=== PATIENT | female | born 1990 | race Caucasian/White ===

== ENCOUNTER 2021-12-03 08:46 | Outpatient (CLI) | payer OTHER, SELFPAY ==
--- NOTE | ~2021-12-03 | XR_ITS ---
EXAMINATION: XR shoulder RT min 2V DATE: 12/03/2021 09:10 INDICATION: Right shoulder pain. TECHNIQUE: 4 views of right shoulder were obtained. COMPARISON: None. FINDINGS: Bone alignment is normal. No fracture. Joint spaces are well maintained. IMPRESSION: 1. Normal right shoulder. Reviewed, dictated and finalized at location B. IMPRESSION: 1. Normal right shoulder.
== END 2021-12-03 08:47 | disposition home or self-care (01) ==
PROVIDERS: PCP Physician Assistant; Visit Provider Physician Assistant
DX: M25.511 Pain in right shoulder (principal)
CPT/HCPCS: 73030

== ENCOUNTER 2021-12-08 09:13 | Outpatient (CLI) | payer OTHER, SELFPAY ==
--- NOTE | ~2021-12-08 | US_ITS ---
EXAMINATION: US pelvic complete w TV DATE: 12/08/2021 09:57 INDICATION: Abnormal uterine bleeding TECHNIQUE: Multiple transabdominal and endovaginal sonographic images of the pelvis were obtained. COMPARISON: None. FINDINGS: The retroflexed uterus measures 8.9 x 3.2 x 5.0 cm. The endometrial complex measures 5 mm in thickne ss. The right ovary measures 4.2 x 2.0 x 3.7 cm. The left ovary measures 5.0 x 3.0 x 3.5 cm. 3.4 cm c omplex mixed solid and cystic left ovarian lesion with both anechoic and hypoechoic cystic components and central more solid hypoechoic component without evident internal vascular flow on color Doppler. Vascular flow is seen in the left ovary peripheral to the cystic lesion. Vascular flow is identified in the right ovary. There is no free fluid in the pelvis. IMPRESSION: 1. Normal uterus with endometrial complex measuring 5 mm in thickness which is normal. 2. 3.4 cm complex mixed solid and cystic left ovarian lesion. Differential would include hemorrhagic cyst or neoplasm either benign or malignant. Recommend further evaluation with pre and postcontrast p elvic MRI. Reviewed, dictated and finalized at location B. IMPRESSION: 1. Normal uterus with endometrial complex measuring 5 mm in thickness which is normal. 2. 3.4 cm complex mixed solid and cystic left ovarian lesion. Differential woul d include hemorrhagic cyst or neoplasm either benign or malignant. Recommend fu rther evaluation with pre and postcontrast pelvic MRI.
== END 2021-12-08 09:14 | disposition home or self-care (01) ==
PROVIDERS: PCP Physician Assistant; Visit Provider Physician Assistant
DX: N93.9 Abnormal uterine and vaginal bleeding, unspecified (principal); N83.202 Unspecified ovarian cyst, left side
CPT/HCPCS: 76830; 76856

== ENCOUNTER 2022-04-10 12:39 | Outpatient (CLI) | payer OTHER, SELFPAY ==
--- NOTE | ~2022-04-10 | MR_ITS ---
EXAMINATION: MR pelvis wo/w con INDICATION: Unspecified ovarian cyst TECHNIQUE: Coronal SSFSE ARC, Coronal, Axial, and Sagittal T2 FRFSE small [id number], Coronal 2D F IESTA FatSat, Axial SSFSE BH ARC, Axial 3D DualEcho BH, Axial STIR, Axial DWI b=500, pre and dynamic postcontrast Axial LAVA ARC COMPARISON: Ultrasound, 12/08/2021 CONTRAST: Multihance, 11 cc FINDINGS: The previously described left ovarian mass is no longer evident. There is a 17 mm hemorrhag ic cyst of the left ovary. There is a 5.4 x 4.1 cm cyst of the right ovary with internal debris. No s uspicious adnexal mass is identified. There are no pathologically enlarged pelvic lymph nodes. No dil ated loops of bowel are identified. There is a small volume of physiologic free fluid in the pelvis. No abnormal enhancement is present after contrast administration. IMPRESSION: 1. Hemorrhagic cyst of left ovary with decrease in size since the comparison ultrasound. 2. 5.4 cm cyst of the right ovary with minimal internal debris. Follow-up ultrasound in 8-12 weeks is recommended. Reviewed, dictated and finalized at location B. [employer] IMPRESSION: 1. Hemorrhagic cyst of left ovary with decrease in size since the comparison ul trasound. 2. 5.4 cm cyst of the right ovary with minimal internal debris. Follow-up ultra sound in 8-12 weeks is recommended.
== END 2022-04-10 12:40 | disposition home or self-care (01) ==
LOC: ANHIMG 12:41
PROVIDERS: PCP Physician Assistant; Visit Provider Physician Assistant
DX: N83.202 Unspecified ovarian cyst, left side (principal); N83.201 Unspecified ovarian cyst, right side
CPT/HCPCS: 72197; A9577